=== PATIENT | female | born 1975 | race Caucasian/White ===

== ENCOUNTER 2019-05-29 05:38 | Inpatient (IN) | payer MEDICARE ==
--- NOTE | 2019-05-28 13:52 | HP ---
HISTORY OF PRESENT ILLNESS: Ms. Michele Richards is a very pleasant 43-year-old woman, here today for evaluation of bilateral C7 radiculopathies. She has a disk osteophyte complex at C6-C7 below the level of a 3-level ACDF that she has had prior, which causes significant stenosis in the neural foramina bilaterally. She hopes to move forward with surgery if possible. PAST MEDICAL HISTORY: Significant for lumbar back problems, diabetes, depression. CURRENT MEDICATIONS: 1. Adderall. 2. Seroquel. 3. Tylenol No. 3. ALLERGIES: NO KNOWN DRUG ALLERGIES. PAST SURGICAL HISTORY: Cervical and lumbar spinal fusions, cholecystectomy, section x2. PHYSICAL EXAMINATION: The patient is alert and oriented x3. Gait is normal. No ataxia. Upper extremity motor exam reveals 5/5 strength in bilateral upper extremities. Equal and present reflexes bilaterally at the biceps. Mild sensory disturbance in 3rd and 4th digits of bilateral hands, more significant on the right than the left. ASSESSMENT: Cervical radiculopathy. PLAN: Dr. Laurent met with the patient, reviewed imaging, and advocated for C6-C7 ACDF. He explained to the patient the risks, benefits, and alternatives to the procedure. The patient expressed understanding and elected to move forward with surgery as discussed. I do believe the patient is mentally competent and capable of making medical decisions for herself. We will move forward with surgery as planned. Job ID: [id number]
[2019-05-28 14:21] VITALS: BMI 31.0
[2019-05-29] MEDS ORDERED: Thrombin 5000 UNITS/5 ML VIAL ONE (06:16)
[2019-05-29] MEDS ORDERED: Lidocaine 1% w/Epinephrine 1:200K 30 ML VIAL ONE (06:21)
[2019-05-29] MEDS ORDERED: Midazolam HCl 2 mg/2 ml Vial ONE (06:51)
[2019-05-29] MEDS ORDERED: Fentanyl 100 MCG/2 ML VIAL ONE ×5 (07:01→09:42)
[2019-05-29] MEDS ORDERED: Propofol 1,000 MG/100 ML VIAL IV ONE (07:29)
--- NOTE | 2019-05-29 12:00 | OP ---
DATE OF PROCEDURE: 05/29/2019 INSIDE SALES PROFESSIONAL: NYDIA Haley Dr. is responsible for the surgical exposure. INDICATION: Cervical radiculopathy. PROCEDURES PERFORMED: Removal of anterior hardware, exploration of fusion, and anterior cervical diskectomy and fusion of C6-C7. ANESTHESIA: General. DESCRIPTION OF PROCEDURE: The patient was brought into the operating room and placed under general anesthesia. She was placed on table in a supine position. A transverse incision was planned on the right side of her neck. Dr. Cristhian Oconnell was responsible for the surgical exposure down to the prevertebral space. This will be dictated in a separate note. After gaining access to the prevertebral space, self-retaining retractors were placed for optimal exposure. The patient's plate from prior surgical procedure was identified, spanning C4-C5 and C5-C6. This plate was removed as were all 6 screws. We then redirected our attention to the level beneath where osteophytes were removed and the fusion mass was removed extending inferiorly from C6. An annulotomy was performed in the disk space. All disk material as well as anterior and posterior osteophytes were removed. Distraction pins were placed. After placement of distraction pins, additional disk material was removed. A 7-mm lordotic PEEK cage packed with allograft and autograft material was placed in an interbody space. An anterior cervical plate was then fashioned from the spine and secured with a total of 4 fixed screws. Midline and lateral structures were then inspected and found to be free from significant trauma. The wound was irrigated. Hemostasis was maintained throughout. The wound was then closed in anatomic layers and a pressure dressing was applied. There were no known procedural complications. Job ID: [id number]
[2019-05-29] MEDS ORDERED: traMADol HCl 50 MG TAB ONE (12:01)
[2019-05-29] MEDS ORDERED: tiZANidine HCl 4 MG TAB ONE (12:01)
[2019-05-29] MEDS ORDERED: PROPOFOL 200 MG/20 ML VIAL ONE (16:05)
[2019-05-29] MEDS ORDERED: Ondansetron PF 4 MG/2 ML Vial ONE (16:05)
[2019-05-29] MEDS ORDERED: Vecuronium 10 MG VIAL ONE (16:05)
[2019-05-29] MEDS ORDERED: Succinylcholine Chloride 20 MG/ML 10 ml SYRINGE FS ONE (16:05)
[2019-05-29] MEDS ORDERED: Lidocaine 1% PF 5 ML VIAL ONE (16:05)
[2019-05-29] MEDS ORDERED: PHENYLEPHRINE-NS 100 MCG/ML 10 ML SYRINGE ONE (16:05)
[2019-05-29] MEDS ORDERED: Glycopyrrolate 0.2 MG/ML 5 ML SYRINGE ONE (16:05)
[2019-05-29] MEDS ORDERED: Dexamethasone 20 MG/5 ML VIAL ONE (16:05)
--- NOTE | 2019-05-30 10:26 | OP ---
DATE OF PROCEDURE: 05/29/2019 PREOPERATIVE DIAGNOSES: 1. Cervical myelopathy. 2. Need for anterior approach for anterior cervical disk fusion surgery. ARCHERY INSTRUCTOR: Rashawn Pavon PA-C. PROCEDURE PERFORMED: Anterior approach for anterior surgical disk fusion surgery. ESTIMATED BLOOD LOSS: 0 mL. COMPLICATIONS: None. ANESTHESIA: GETA with laryngeal nerve monitor. DESCRIPTION OF PROCEDURE: The patient was taken to the operating room, placed supine on the table. General endotracheal anesthesia was obtained by the Anesthesia staff. The laryngeal electrodes were noted to be between the true vocal cords by indirect laryngoscopy. The tube was secured to the midline of the upper lip and was secured. The patient was prepped and draped for standard surgical procedure. Following this, a horizontal incision was made in the right neck approximately 4 to 5 cm in length and was carried with a 15 blade through skin and subcutaneous tissue into the platysmal layer. Subplatysmal flaps were elevated superiorly and inferiorly and dissection was carried medially. The sternocleidomastoid was identified and dissection was carried medially and laterally displacing the great vessels and moving the thyroid and the laryngeal structures medially. The prevertebral fascia was encountered and the previous cervical plate was identified. Adequate exposure was provided for the neurosurgical team and the procedure was then turned over to Dr. Wu Laurent for completion of the procedure. Job ID: [id number]
== END 2019-05-29 13:05 | disposition home or self-care (01) | DRG 472 ==
LOC: SURG A 05:38
PROVIDERS: ADMIT Neurological Surgery; ATTEND Neurological Surgery
PROC: 0RG10A0 Fusion of Cervical Vertebral Joint with Interbody Fusion Device, Anterior Approach, Anterior Column, Open Approach (ICD-10-PCS; principal; 2019-05-29)
PROC: 0RT30ZZ Resection of Cervical Vertebral Disc, Open Approach (ICD-10-PCS; 2019-05-29)
PROC: 0RP104Z Removal of Internal Fixation Device from Cervical Vertebral Joint, Open Approach (ICD-10-PCS; 2019-05-29)
PROC: 4A11X4G Monitoring of Peripheral Nervous Electrical Activity, Intraoperative, External Approach (ICD-10-PCS; 2019-05-29)
DX: M50.123 Cervical disc disorder at C6-C7 level with radiculopathy (principal); M50.023 Cervical disc disorder at C6-C7 level with myelopathy; F32.9 Major depressive disorder, single episode, unspecified; E11.9 Type 2 diabetes mellitus without complications; Z79.52 Long term (current) use of systemic steroids; Z79.899 Other long term (current) drug therapy; Z90.49 Acquired absence of other specified parts of digestive tract
CPT/HCPCS: 36415; 76000; 85014; C1713; C1776; J0131; J0690; J1100; J2001; J2250; J2405; J2704; J3010

== ENCOUNTER 2021-03-12 16:16 | Outpatient (CLI) | payer MEDICARE ==
[2021-03-13 03:29] LABS: SARS-CoV-2 PCR by NAA Not Detected (NotDetected)
== END 2021-03-12 16:17 | disposition home or self-care (01) ==
LOC: LABBT 16:16
PROVIDERS: ATTEND Neurological Surgery
DX: Z01.818 Encounter for other preprocedural examination (principal); M54.12 Radiculopathy, cervical region
CPT/HCPCS: U0003; U0005; 87635

== ENCOUNTER 2021-03-17 06:00 | Day surgery (SDC) | payer MEDICAID, MEDICARE ==
[2021-03-16 15:26] VITALS: BMI 29.5
[2021-03-17] MEDS ORDERED: Thrombin 5000 UNITS/5 ML VIAL ONE (06:50)
[2021-03-17] MEDS ORDERED: Fentanyl 100 MCG/2 ML VIAL ONE ×4 (06:51→10:18)
[2021-03-17] MEDS ORDERED: Midazolam HCl 2 mg/2 ml Vial ONE (07:30)
[2021-03-17] MEDS ORDERED: Dexmedetomidine 200 MCG/2 ML VIAL ONE (07:37)
[2021-03-17] MEDS ORDERED: PHENYLEPHRINE-NS 100 MCG/ML 10 ML SYRINGE ONE (07:39)
[2021-03-17] MEDS ORDERED: Lidocaine 1% PF 5 ML VIAL ONE (07:39)
[2021-03-17] MEDS ORDERED: Glycopyrrolate 0.2 MG/ML 5 ML SYRINGE ONE (07:39)
[2021-03-17] MEDS ORDERED: Rocuronium Bromide 10 MG/ML (10ML VIAL) ONE (07:39)
[2021-03-17] MEDS ORDERED: Dexamethasone 20 MG/5 ML VIAL ONE (07:39)
[2021-03-17] MEDS ORDERED: ePHEDrine Sulfate 50 MG/10 ML VIAL ONE (07:39)
[2021-03-17] MEDS ORDERED: Ondansetron PF 4 MG/2 ML Vial ONE (07:39)
[2021-03-17] MEDS ORDERED: PROPOFOL 200 MG/20 ML VIAL ONE (07:39)
[2021-03-17] MEDS ORDERED: HYDROmorphone 2 MG/ML VIAL ONE (09:06)
[2021-03-17] MEDS ORDERED: Cyclobenzaprine 10 MG TAB ONE (09:09)
[2021-03-17] MEDS ORDERED: Meperidine HCl/PF 25 MG/ML VIAL ONE (09:17)
[2021-03-17] MEDS ORDERED: Ketorolac Tromethamine 30 MG/ML VIAL ONE (09:26)
[2021-03-17] MEDS ORDERED: HYDROmorphone 0.5 MG/0.5 ML SYRINGE ONE (10:17)
[2021-03-17] MEDS ORDERED: HYDROcodone/Acetaminophen 5/325 mg Tablet ONE (11:43)
== END 2021-03-17 12:40 | disposition home or self-care (01) ==
LOC: SDC 06:00
PROVIDERS: ATTEND Neurological Surgery
PROC: 0RG10A0 Fusion of Cervical Vertebral Joint with Interbody Fusion Device, Anterior Approach, Anterior Column, Open Approach (ICD-10-PCS; principal; 2021-03-17)
PROC: 0RT30ZZ Resection of Cervical Vertebral Disc, Open Approach (ICD-10-PCS; 2021-03-17)
DX: M48.02 Spinal stenosis, cervical region (principal); M54.12 Radiculopathy, cervical region; G89.4 Chronic pain syndrome; E11.9 Type 2 diabetes mellitus without complications; Z79.899 Other long term (current) drug therapy; Z88.8 Allergy status to other drugs, medicaments and biological substances; Z91.040 Latex allergy status; Z98.1 Arthrodesis status
CPT/HCPCS: 76000; C1713; C1776; J0690; J1100; J1170; J1885; J2175; J2250; J2405; J2704; J3010

== ENCOUNTER 2022-11-04 06:13 | Inpatient (IN) | payer MEDICARE ==
[2022-11-03 12:05] VITALS: BMI 31.0
[2022-11-04] MEDS ORDERED: Sodium Chloride 0.9% 100 ML ONE ×2 (06:58→12:42)
[2022-11-04] MEDS ORDERED: CEFAZOLIN 2 GM VIAL ONE ×2 (06:58→12:42)
[2022-11-04 07:46] LABS: SARS-CoV-2 NAA Rapid Test Not Detected (NotDetected)
[2022-11-04] MEDS ORDERED: Thrombin 5000 UNITS/5 ML VIAL ONE (08:18)
[2022-11-04] MEDS ORDERED: Fentanyl 250 MCG/5 ML VIAL ONE (08:26)
[2022-11-04] MEDS ORDERED: Midazolam HCl 2 mg/2 ml Vial ONE (08:26)
[2022-11-04] MEDS ORDERED: Glycopyrrolate 0.2 MG/ML 5 ML SYRINGE ONE (08:35)
[2022-11-04] MEDS ORDERED: ePHEDrine 50 MG/ML VIAL ONE (08:35)
[2022-11-04] MEDS ORDERED: NEOSTIGMINE 3 MG/3 ML SYR 3 MG/3 ML SYRINGE ONE (08:35)
[2022-11-04] MEDS ORDERED: Ondansetron PF 4 MG/2 ML Vial ONE (08:35)
[2022-11-04] MEDS ORDERED: Phenylephrine 10 MG/ML VIAL ONE (08:35)
[2022-11-04] MEDS ORDERED: Rocuronium Bromide 10 MG/ML (10ML VIAL) ONE (08:35)
[2022-11-04] MEDS ORDERED: Dexamethasone 20 MG/5 ML VIAL ONE (08:35)
[2022-11-04] MEDS ORDERED: PROPOFOL 200 MG/20 ML VIAL ONE (08:35)
[2022-11-04] MEDS ORDERED: HYDROmorphone 2 MG/ML VIAL ONE (08:56)
[2022-11-04] MEDS ORDERED: FENTANYL 50 MCG/ML 1 ML VIAL ONE ×3 (10:59→11:36)
[2022-11-04] MEDS ORDERED: HYDROcodone/Acetaminophen 5/325 mg Tablet ONE (12:27)
== END 2022-11-04 13:46 | disposition home or self-care (01) | DRG 473 ==
LOC: SURG A 06:13
PROVIDERS: ADMIT Neurological Surgery; ATTEND Neurological Surgery
PROC: 0RG10A0 Fusion of Cervical Vertebral Joint with Interbody Fusion Device, Anterior Approach, Anterior Column, Open Approach (ICD-10-PCS; principal; 2022-11-04)
PROC: 0RB30ZZ Excision of Cervical Vertebral Disc, Open Approach (ICD-10-PCS; 2022-11-04)
PROC: 0PP304Z Removal of Internal Fixation Device from Cervical Vertebra, Open Approach (ICD-10-PCS; 2022-11-04)
DX: M47.12 Other spondylosis with myelopathy, cervical region (principal); Z20.822 Contact with and (suspected) exposure to COVID-19; G89.4 Chronic pain syndrome; I10 Essential (primary) hypertension; E66.9 Obesity, unspecified; F17.210 Nicotine dependence, cigarettes, uncomplicated; Z90.49 Acquired absence of other specified parts of digestive tract; Z90.710 Acquired absence of both cervix and uterus; Z68.31 Body mass index [BMI] 31.0-31.9, adult; Z88.8 Allergy status to other drugs, medicaments and biological substances; M25.78 Osteophyte, vertebrae
CPT/HCPCS: 93005; 93010; C1713; C1889; J1100; J1170; J2250; J2370; J2405; J2704; J3010; J3490; U0002